=== PATIENT | female | born 1990 | race Caucasian/White ===

== ENCOUNTER → 2020-03-31 15:35 | Outpatient (CLI) | payer BC, SELFPAY ==
--- NOTE | ~2020-03-31 | US_ITS ---
EXAMINATION: US OB transvaginal EXAM DATE: 03/31/2020 16:18 INDICATION: Spotting in 1 week ago. 1st trimester. TECHNIQUE: Pelvic obstetrical transvaginal sonogram was performed by a technologist. There are mult iple grayscale and Doppler images available for interpretation. There are no earlier studies of this gestation for comparison. FINDINGS: There is intrauterine gestation sac, with what appears to be a lobulation of endometrial ti ssue protruding into the gestation sac, distorting its contour, probably displacing portion of it. Th is region measures about 1 cm. A yolk sac is identified measuring 3-4 mm, along with a contiguous tin y pole suspected at 2 mm which would correspond to estimated gestational age 5 weeks 5 days. Tiny cardiac flutter suspected but could not confirm heart rate on M-mode at this early date. No subc horionic hemorrhage suspected. The ovaries are morphologically normal. IMPRESSION: 1. Early intrauterine gestation sac with tiny pole suspected but could not confirm heart rate o n M-mode. 2. Lobulation of endometrium bulging into and distorting the contour of the gestation sac. 3. Consider 2 week follow-up pelvic sonogram. Reviewed, dictated and finalized at location B. IMPRESSION: 1. Early intrauterine gestation sac with tiny pole suspected but could no t confirm heart rate on M-mode. 2. Lobulation of endometrium bulging into and distorting the contour of the ges tation sac. 3. Consider 2 week follow-up pelvic sonogram.
== END ==
PROVIDERS: Visit Provider Obstetrics & Gynecology
DX: O26.851 Spotting complicating pregnancy, first trimester (principal)
CPT/HCPCS: 76817

== ENCOUNTER 2020-03-31 16:30 | Outpatient (RCR) | payer BC, SELFPAY | END 2020-06-27 23:59 | disposition home or self-care (01) | LOC: ANHLAB 16:30 | PROVIDERS: Visit Provider Obstetrics & Gynecology | DX: O26.859 Spotting complicating pregnancy, unspecified trimester (principal); Z3A.00 Weeks of gestation of pregnancy not specified | CPT/HCPCS: 36415; 84702; 86850; 86900; 86901 ==

== ENCOUNTER → 2020-04-16 08:15 | Outpatient (CLI) | payer BC, SELFPAY ==
--- NOTE | ~2020-04-16 | US_ITS ---
EXAMINATION: US OB transvaginal DATE: 04/16/2020 08:49 INDICATION: Evaluate viability TECHNIQUE: Real-time transvaginal obstetric ultrasound. FINDINGS: Comparison to 03/31/2020 The uterus measures 10.9 x 6.2 x 8 cm. There is an intrauterine gestational sac, with pole iden tified. Subchorionic hemorrhage measuring 3 x 1.1 x 1.0 cm. The crown rump length measures 1.67 cm, w hich correlates with a estimated gestational age of 8 weeks 0 days. heart tones are identifie d measuring 158. IMPRESSION: 1. SL IUP with an EGA of 8 weeks, 0 days (EDC by current ultrasound of 11/26/2020). 2: Subchorionic hemorrhage. Reviewed, dictated and finalized at location B. IMPRESSION: 1. SL IUP with an EGA of 8 weeks, 0 days (EDC by current ultrasound of 11/27/19). 2: Subchorionic hemorrhage.
== END ==
PROVIDERS: Visit Provider Obstetrics & Gynecology
DX: O36.80X0 Pregnancy with inconclusive fetal viability, not applicable or unspecified (principal); Z3A.08 8 weeks gestation of pregnancy; O36.8911 Maternal care for other specified fetal problems, first trimester, fetus 1
CPT/HCPCS: 76817

== ENCOUNTER 2020-05-12 14:42 | Outpatient (CLI) | payer BC, SELFPAY ==
[2020-05-12 15:31] LABS: Basophils Percent Auto 0.4 % (0.2-1.2); Eosinophils Absolute Auto 0.1 K/mm3 (0-0.3); Eosinophils Percent Auto 0.5 % (0-4.4); Hematocrit 38.4 % (37.0-47.0); Hemoglobin 13.4 g/dL (12.0-15.0); Immature Granulocyte Absolute 0.04 K/mm3 (0.00-0.031); Immature Granulocyte Percent A 0.4 % (0-0.5); Lymphocytes Absolute Auto 2.33 K/mm3 (0.9-3.2); Lymphocytes Percent Auto 21.7 % (18.3-44.2); Mean Corpuscular HGB Conc 34.9 g/dl (32-36); Mean Corpuscular Hemoglobin 32.2 pg (26-34); Mean Corpuscular Volume 92.3 fl (80-100); Mean Platelet Volume 9.6 fl (7.4-10.4); Monocytes Absolute Auto 0.8 K/mm3 (0.1-0.6); Neutrophils Absolute Auto 7.5 K/mm3 (1.3-6.7); Platelet Count Result 251 k/mm3 (150-375); Red Blood Count 4.16 M/mm3 (4.2-5.4); Red Cell Distribution Width 11.8 % (11.5-14.5); White Blood Count 10.7 K/mm3 (4.5-10.0)
[2020-05-12 16:52] LABS: Hemoglobin A1C 4.6 % (<5.7)
[2020-05-12 17:28] LABS: Vitamin D 25 Hydroxy 45.7 ng/mL
[2020-05-12 19:02] LABS: HIV 1/2 Ab P24 Ag Result Negative (Negative); Hepatitis B Surface Antigen Negative (Negative); Rubella IgG Antibody 25.3 IU/ML
[2020-05-13 09:50] LABS: Rapid Plasma Reagin Non-Reactive (NonReactive)
== END 2020-05-12 14:43 | disposition home or self-care (01) ==
PROVIDERS: Visit Provider Obstetrics & Gynecology
DX: Z36.9 Encounter for antenatal screening, unspecified (principal)
CPT/HCPCS: 36415; 82306; 83036; 85025; 86592; 86703; 86762; 86850; 86900; 86901; 87340; G0432

== ENCOUNTER → 2020-05-13 08:16 | Outpatient (CLI) | payer BC, SELFPAY ==
--- NOTE | ~2020-05-13 | US_ITS ---
EXAMINATION: US OB <= 14 weeks fetus DATE: 05/13/2020 09:32 INDICATION: Subchorionic hematoma. Follow-up. First trimester. TECHNIQUE: Real-time transabdominal pelvic ultrasound was performed. COMPARISON: Ultrasound 04/16/2020, 03/31/2020 FINDINGS: The uterus measures 12.0 x 9.1 x 11.1 cm. There is an intrauterine gestational sac. A yolk sac is christophe ntified. The crown rump length measures 5.3 cm, which correlates with an estimated gestational age of 12 weeks and 0 day(s) (+/-) 1 week(s) and 1 day(s). heart motion is identified measurin g 147 beats per minute (bpm) by M-mode Doppler. There is a 3.4 x 0.7 x 3.2 cm subchorionic hematoma. There is an 11 mm cyst in the endometrial complex. The ovaries are not visualized. There is no free f luid in the pelvis. IMPRESSION: 1. Single living intrauterine gestation with estimated date of delivery of 11/26/20 based on the ultra sound from 03/31/2020. 2. Small subchorionic hematoma. Reviewed, dictated and finalized at location A. SPINNER SOUSAPHONES IMPRESSION: 1. Single living intrauterine gestation with estimated date of delivery of 11/26 based on the ultrasound from 03/31/2020. 2. Small subchorionic hematoma.
== END ==
PROVIDERS: Visit Provider Obstetrics & Gynecology
DX: O46.91 Antepartum hemorrhage, unspecified, first trimester (principal); Z3A.12 12 weeks gestation of pregnancy
CPT/HCPCS: 76801

== ENCOUNTER 2020-06-11 07:31 | Outpatient (CLI) | payer BC, SELFPAY ==
--- NOTE | ~2020-06-11 | US_ITS ---
US OB limited 06/11/2020 08:31 Indication: Subchorionic hemorrhage Procedure: High-resolution Limited early obstetrical ultrasound Comparison: 05/03/2020 Findings: There is a single living intrauterine in vertex presentation with heart rat e 150 BPM. Amniotic fluid is subjectively normal. Persistent small subchorionic hemorrhage measuring 1.2 x 0.7 x 0.7 cm compared with 1.1 x 0.8 x 0.7 cm on prior study. Placenta is anterior. Impression: 1: Single living intrauterine in vertex presentation. 2: Stable small subchorionic hemorrhage. Reviewed, dictated and finalized at location A. IER OFFICE Impression: 1: Single living intrauterine in vertex presentation. 2: Stable small subchorionic hemorrhage.
== END 2020-06-11 07:32 | disposition home or self-care (01) ==
PROVIDERS: Visit Provider Obstetrics & Gynecology
DX: O36.8912 Maternal care for other specified fetal problems, first trimester, fetus 2 (principal); Z3A.16 16 weeks gestation of pregnancy
CPT/HCPCS: 76815

== ENCOUNTER → 2020-07-10 09:47 | Outpatient (CLI) | payer BC, SELFPAY ==
--- NOTE | ~2020-07-10 | US_ITS ---
EXAMINATION: US OB >= 14 weeks Fetus DATE: 07/10/2020 10:35 INDICATION: survey TECHNIQUE: Multiple obstetric sonographic images performed. FINDINGS: Comparison to multiple prior studies sequentially, with oldest reviewed study dated 2019. There is a single living fetus in vertex presentation. The placenta is posterior/fundal without plac enta previa. Amniotic fluid volume is normal. cardiac activity and movement is noted with a heart rate of 145 beats per minute. The following anatomy was identified as normal: 4 chamber heart 3 vessel cord cord insertion kidneys urinary bladder stomach spine diaphragm ventricles cisterna magna cerebellum There is possible developmental deformity of the right lower leg/foot. Recommend attention to this on subsequent examination. The following biometric data were obtained: BPD: 47mm corresponds to gestational age 20 weeks 2 days. Head circumference: 180 mm corresponds to gestational age 20 weeks 3 days. Abdominal circumference: 153 mm corresponds to gestational age 20 weeks 4 days. Femur length: 35 mm corresponds to gestational age 21 weeks 1 days. Head circumference to abdominal circumference ratio: 1.17 (normal range for expected gestational age is 1.07-1.25). Estimated weight: 373 grams +/- 56 grams using Hadlock method. IMPRESSION: 1: Single living intrauterine with an estimated gestational age of 20weeks 1days by initial ultrasound measurements, with an EDC of 11/26/2020 in vertex presentation. 2. Possible developmental deformity of the right lower leg/foot. Recommend attention to this on subs equent examination. The remainder of the survey is unremarkable. 3: Stable small hypoechoic structure along the margin of the placenta, likely chronic subchorionic h ematoma. Reviewed, dictated and finalized at location A. CUTTING MACHINE OPERATOR IMPRESSION: 1: Single living intrauterine with an estimated gestational age of 20 weeks 1days by initial ultrasound measurements, with an EDC of 11/26/2020 in ve rtex presentation. 2. Possible developmental deformity of the right lower leg/foot. Recommend att ention to this on subsequent examination. The remainder of the survey is unremarkable. 3: Stable small hypoechoic structure along the margin of the placenta, likely chronic subchorionic hematoma.
== END ==
PROVIDERS: Visit Provider Obstetrics & Gynecology
DX: Z34.02 Encounter for supervision of normal first pregnancy, second trimester (principal); Z3A.20 20 weeks gestation of pregnancy
CPT/HCPCS: 76805

== ENCOUNTER 2020-09-04 08:13 | Outpatient (CLI) | payer BC, SELFPAY ==
[2020-09-04 09:57] LABS: Hematocrit 33.8 % (37.0-47.0); Hemoglobin 11.4 g/dL (12.0-15.0)
[2020-09-04 10:09] LABS: Glucose 1 Hour PP 50gm Dose 92 mg/dL
[2020-09-04 10:46] LABS: Vitamin D 25 Hydroxy 43.9 ng/mL
[2020-09-04 10:48] LABS: HIV 1/2 Ab P24 Ag Result Negative (Negative)
== END 2020-09-04 08:14 | disposition home or self-care (01) ==
PROVIDERS: Visit Provider Obstetrics & Gynecology
DX: Z34.02 Encounter for supervision of normal first pregnancy, second trimester (principal); Z3A.00 Weeks of gestation of pregnancy not specified
CPT/HCPCS: 36415; 82306; 82947; 85014; 85018; 86703; G0432

== ENCOUNTER 2020-11-18 00:33 | Inpatient (IN) | payer BC, SELFPAY ==
[2020-11-18] VITALS (29 sets, daily range): BP systolic 95–154; BP diastolic 56–99; PULSE 55–79; RESP 16–18; TEMP 36–37.1; O2SAT 96–100; BMI 29.1
--- NOTE | 2020-11-18 00:33 | LDADM ---
This patient, Jennifer Mattson, was admitted to Labor/Delivery/Recovery 109 on 11/18/20 at 00:33. Plans for labor, pain management and were discussed with patient. Patient/family oriented to hospital policies and general routines including ID bracelet, bed and alarms, visiting hours, pain management, procedures, bathroom and other care routines, personal items, smoking policy, room service/diet and guest tray routines, security routines, and visiting hours. Patient/Family are encouraged to report perceived risks to care and to ask questions if they do not understand what they are told or what they should do. See OBIX for further documentation.
[2020-11-18] MEDS: LACTATED RINGERS 1,000 ML 125 ML IV CONT ×3 (01:03→09:22)
[2020-11-18] MEDS: AMPICILLIN 2 GM/NS 100 ML 2 GM/100 ML BAG IVPB (01:04)
[2020-11-18 01:10] LABS: Basophils Percent Auto 0.4 % (0.2-1.2); Eosinophils Absolute Auto 0.1 K/mm3 (0-0.3); Eosinophils Percent Auto 0.5 % (0-4.4); Hematocrit 35.8 % (37.0-47.0); Hemoglobin 12.2 g/dL (12.0-15.0); Immature Granulocyte Absolute 0.07 K/mm3 (0.00-0.031); Immature Granulocyte Percent A 0.7 % (0-0.5); Lymphocytes Absolute Auto 2.23 K/mm3 (0.9-3.2); Mean Corpuscular HGB Conc 34.1 g/dl (32-36); Mean Corpuscular Hemoglobin 32.3 pg (26-34); Mean Corpuscular Volume 94.7 fl (80-100); Mean Platelet Volume 11.4 fl (7.4-10.4); Monocytes Absolute Auto 0.8 K/mm3 (0.1-0.6); Monocytes Percent Auto 7.7 % (2.6-8.5); Neutrophils Percent Auto 68.7 % (45.5-73.1); Platelet Count Result 190 k/mm3 (150-375); Red Blood Count 3.78 M/mm3 (4.2-5.4); Red Cell Distribution Width 12.7 % (11.5-14.5); White Blood Count 10.2 K/mm3 (4.5-10.0)
[2020-11-18] MEDS: OXYTOCIN 30 UNITS/NS 500 ML 30 UNITS/500 ML BAG IV CONT (01:29)
--- NOTE | 2020-11-18 02:37 | P.PNAN_ITS ---
Anes - Eval Pre Procedure Procedure: Labor epidural Date/Time: 11/18/20 02:37 Surgeon: Marita Preop Diagnosis: abd pain with contractions Pre Op Diagnosis: IOL Patient Data Age: 30 Gender: F Height: 5 ft 5 in Weight: 79.5 kg Last Vital Signs Temp 97.5 F L 11/18/20 00:51 Pulse 64 11/18/20 02:30 Resp 18 11/18/20 00:51 BP 117/77 11/18/20 02:30 Allergies Allergy/AdvReac Type Severity Reaction Status Date / Time Sulfa (Sulfonamide Allergy Unknown Verified 10/30/20 12:34 Antibiotics) Home Medications Medication Instructions Recorded Confirmed Type prenat.vits,quentin,yst-wscv-idhht 1 tablet PO DAILY 10/30/20 10/30/20 History [ #2] Laboratory Tests 11/18/20 11/18/20 00:57 00:57 WBC 10.2 K/mm3 H K/mm3 (4.5-10.0) RBC 3.78 M/mm3 L M/mm3 (4.2-5.4) Hgb 12.2 g/dL g/dL (12.0-15.0) Hct 35.8 % L % (37.0-47.0) MCV 94.7 fl fl (80-100) MCH 32.3 pg pg (26-34) MCHC 34.1 g/dl g/dl (32-36) RDW 12.7 % % (11.5-14.5) Plt Count 190 k/mm3 k/mm3 (150-375) MPV 11.4 fl H fl (7.4-10.4) Immature Gran % (Auto) 0.7 % H % (0-0.5) Neut % (Auto) 68.7 % % (45.5-73.1) Lymph % (Auto) 22.0 % % (18.3-44.2) Desha % (Auto) 7.7 % % (2.6-8.5) Eos % (Auto) 0.5 % % (0-4.4) Baso % (Auto) 0.4 % % (0.2-1.2) Lymph # (Auto) 2.23 K/mm3 K/mm3 (0.9-3.2) Desha # (Auto) 0.8 K/mm3 H K/mm3 (0.1-0.6) Eos # (Auto) 0.1 K/mm3 K/mm3 (0-0.3) Baso # (Auto) 0.0 K/mm3 K/mm3 (0.0-0.1) Abs Immat Gran (auto) 0.07 K/mm3 H K/mm3 (0.00-0.031) Absolute Neuts (auto) 7.0 K/mm3 H K/mm3 (1.3-6.7) Absolute Nucleated RBC 0.0 K/mm3 K/mm3 (0.0-0.012) Nucleated RBC % 0.0 % % (0.0-0.2) RPR Pending Patient hx anesthesia problems: none Family hx anesthesia problems: none PMFSH Past Medical History Medical History Overweight (BMI 25.0-29.9) and not yet delivered Surgical History Surgical History History of tonsillectomy Family History Family History Mother A-fib Scoliosis Sibling Scoliosis Social History Social History Smoking status: Never smoker Substance use: never Spiritual care concerns: No Exam Day of Procedure 11/18/20 02:37 Patient weight: overweight Airway: Mallampati scale class II Neurological: alert and oriented
[2020-11-18] MEDS: AMPICILLIN 1 GM/NS 50 ML 1 GM/50 ML BAG IVPB ×2 (04:50→09:22)
--- NOTE | 2020-11-18 07:37 | P.HP_ITS ---
Obstetrics - Admit Note Admission Note: record reviewed. No pertinent additions to the history and/or any subsequent changes in the physical findings that are not consistent with the expected course of the were found. Additions to the history and/or subsequent changes in the physical findings follow. Here for MIL per Dr. Kirkland at 39 1/7 wks with marginal vs velementous insertion of cord. Cervix 480/-2 AROM with clear fluid. I will be covering as Dr. Kirkland is leaving [facility]. Known club foot. FHTs reactive
[2020-11-18 10:24] LABS: Rapid Plasma Reagin Non-Reactive (NonReactive)
--- NOTE | 2020-11-18 11:34 | P.PCNOB_ITS ---
OB - Delivery Note Procedure Delivery date: 11/18/20 Procedure: events: Labor Induction (velementous cord insertion) Intrapartal events: None Induction method: AROM and per pitocin protocol Delivery monitor: external FHT and external uterine Route of delivery: Laceration Description: Perineal - 2nd Degree Delivery repair: vicryl (3-0) Specimen: Yes (placenta) Quantitative Blood Loss (ml): 350 Anesthesia type: Local Disposition: floor Narrative: cord and about 1/4 placenta delivered spontaneous; remainder of placenta delivered manually; uterus explored and smooth without placenta or membrane remnants Roxana Baby Date of : 11/18/20 Weeks of gestation at delivery: 39 Infant gender: Female Weight (pounds): 6 Weight (ounces): 6 presentation: vertex position: Left Occiput Anterior Placenta delivery description: Manual Removal cord vessel description: 3 Vessels and Nuchal Cord score one minute: 8 score five minutes: 9
--- NOTE | 2020-11-18 11:36 | P.DS_ITS ---
DS: Admitting Diagnosis Admitting Diagnosis Admitting Diagnosis: IUP 39 wks; Velementous insertion of cord; Clubbed foot DS: Discharge Diagnosis Discharge Diagnosis (1) (normal spontaneous vaginal delivery): Code(s): O80 - Encounter for full-term uncomplicated delivery Status: Acute OB - DS: Summary OB Procedures : NST and Ultrasound OB Procedures Intrapartum: Spontaneous Vag Delivery OB Procedures: : None Peripartum Data Delivery Method: Natural Vaginal Laceration Description: Perineal - 2nd Degree complications: retained placenta (manual removal of majority of placenta) Status at Discharge Functional status at discharge: independent ambulation Overall status at discharge: patient is progressing back to baseline Time Spent with Patient Time attestation: Total time spent providing and/or coordinating discharge services: DS: Data Data Completed and Pending Labs on day of discharge: Labs from last 24 hours 11/18/20 11/18/20 11/18/20 00:57 00:57 00:57 WBC 10.2 H RBC 3.78 L Hgb 12.2 Hct 35.8 L MCV 94.7 MCH 32.3 MCHC 34.1 RDW 12.7 Plt Count 190 MPV 11.4 H Immature Gran % (Auto) 0.7 H Neut % (Auto) 68.7 Lymph % (Auto) 22.0 Nobles % (Auto) 7.7 Eos % (Auto) 0.5 Baso % (Auto) 0.4 Lymph # (Auto) 2.23 Nobles # (Auto) 0.8 H Eos # (Auto) 0.1 Baso # (Auto) 0.0 Abs Immat Gran (auto) 0.07 H Absolute Neuts (auto) 7.0 H Absolute Nucleated RBC 0.0 Nucleated RBC % 0.0 RPR Non-reactive Blood Type A Positive Antibody Screen Negative Discharge Plan Discharge Attending physician on discharge: Catalina Guido Discharging Clinician: Catalina Guido Anticipated Discharge Date/Time: 11/20/20 11:38 Patient Disposition: Home, Self-Care Activity: may shower and pelvic rest Diet: regular Patient Instructions: Antibiotic Form Stand Alone Forms: General Discharge Information Follow-up/Referrals: Jareth Kirkland MD [Physician] - 6 Weeks Discharge Medications: New norethindrone (contraceptive) 0.35 mg tablet 0.35 mg PO DAILY Qty: 84 RF: 3 Continued #2 Tablet 1 tablet PO DAILY RF: 0 Date of admission: 11/18/20 00:33 Primary Care Provider: PHYSICIAN,ELEVATOR TROUBLESHOOTER Admitting Provider: Jareth Kirkland Attending physician on admission: Jareth Kirkland Condition: Stable
[2020-11-18] MEDS: OXYTOCIN 30 UNITS/NS 500 ML 30 UNITS/500 ML BAG 125 UNITS IV CONT (11:46)
[2020-11-18] MEDS: IBUPROFEN 600 MG TABLET PO (12:51)
[2020-11-18] MEDS: BENZOCAINE 20% AER SPR (*SP) 56 GM CAN 1 SPRAY TOPICAL (12:52)
[2020-11-18] MEDS: WITCH HAZEL 40 PADS 1 PAD TOPICAL (12:52)
--- NOTE | 2020-11-18 14:14 | OBPPTRN ---
Patient transferred to post room # 281 via wheelchair Support person present. Oriented to unit, room, information board, rooming in, admission packet and security measures. Patient verbalizes understanding.PT received all instructions and education via one to one discussion , demonstration, mom baby care guide. PT and spouse both recipients of education and no barriers to learning identified.
--- NOTE | 2020-11-18 14:45 | PC.NURSE ---
RN requested assist with feeding. . Reviewed feeding cues, frequencies, duration of feedings, feeding elimination flow sheet, and signs of adequate intake. Demonstrated stimulation techniques to wake infant for feeding. Assisted with infant to breast. Reviewed positioning/alignment in cross cradle, holding breast in ?U? hold and guided asymmetrical latch on. able to latch correctly within a few attempts. Infant nursed eagerly, with steady draws and occasional swallowing followed by pausing. Reviewed signs of a correct latch, effective nursing and suck swallow ratio. Infant would slip to shallow latch, mother reports tenderness. Demonstrated how to adjust latch more deeply while feeding. Mother reports she can feel change in latch and has more tugging than tenderness. Nipple care reviewed of lanolin after feedings, warm compresses and needed. Suggested mother stimulate while feeding to increase stimulate, increase intake and to assist with maintaining deep latch. Instructed mother to call out for RN assistance if she is unable to latch infant for feeding or she has discomfort with nursing. Instructed feeding should be initiated three hours from start of last feeding or if feeding cues are noted before. Mother voiced understanding of information shared.
[2020-11-18] MEDS: ACETAMINOPHEN 325 MG TABLET 650 MG PO (16:34)
[2020-11-18] MEDS: DOCUSATE SODIUM 100 MG CAPSULE PO (16:35)
[2020-11-19 04:50] VITALS: BP 114/67; PULSE 64; RESP 16; TEMP 36.4; O2SAT 100
[2020-11-19] MEDS: IBUPROFEN 600 MG TABLET PO (04:53)
[2020-11-19 05:46] LABS: Hematocrit 32.1 % (37.0-47.0); Hemoglobin 10.8 g/dL (12.0-15.0)
--- NOTE | 2020-11-19 07:50 | PC.NURSE ---
Mother called out for assist with feeding. Mother reports nipple discomfort with feeding more to right than left. Mother has infant latched shallow in cradle positioning. Suggested mother break latch. Assisted with to breast. Reviewed positioning/alignment in cross cradle, holding breast in ?U? hold and guided asymmetrical latch on. able to latch correctly. Infant nursed eagerly, with steady draws and frequent swallowing noted. Reviewed signs of a correct latch, effective nursing and suck swallow ratio. would slip to shallow latch, mother reports tenderness. Demonstrated how to adjust latch more deeply while feeding. Mother reports she can feel change in latch and has no tenderness. Nipple care reviewed of lanolin after feedings, warm compresses and gel pads as needed. Suggested mother stimulate while feeding to increase stimulate, increase intake and to assist with maintaining deep latch. Instructed mother to call out for RN assistance if she is unable to latch infant for feeding or she has discomfort with nursing. Instructed feeding should be initiated three hours from start of last feeding or if feeding cues are noted before. Mother voiced understanding of information shared.
[2020-11-19 09:15] VITALS: BP 112/67; PULSE 72; RESP 16; TEMP 37.1; O2SAT 99
--- NOTE | 2020-11-19 12:43 | PM.OBPNVD ---
OB - PN: Subj Subjective Date/time seen: 11/19/20 12:43 Patient comments: no complaints and pain well controlled baby status: doing well OB - PN: Obj Data Labs CBC & Chem 7: 11/19/20 04:57 Labs: Laboratory Results - last 24 hr 11/19/20 04:57 Hgb 10.8 L Hct 32.1 L OB - PN A/P Plan day: 1 Plan: routine care Time Spent With Patient Time: Total time spent is greater than 50% in coordination of care (as documented) at patient's floor/unit and/or counseling patient: Exam : Bimanual exam- vagina & uterus: other (Uterus firm, nt @U)
--- NOTE | 2020-11-19 12:55 | PC.NURSE ---
Mother called out for assist with feeding wanting latch checked. Mother reports slight nipple discomfort less than previous feeding. Infant was latched correctly with bottom lip rolled in. Demonstrated how to roll lip out while feeding. nursed eagerly, with steady draws and frequent swallowing noted. Reviewed signs of a correct latch, effective nursing and suck swallow ratio. Nipple care reviewed of lanolin after feedings, warm compresses and needed. Suggested mother stimulate while feeding to increase stimulate, increase intake and to assist with maintaining deep latch. Instructed mother to call out for RN assistance if she is unable to latch infant for feeding or she has discomfort with nursing. Instructed feeding should be initiated three hours from start of last feeding or if feeding cues are noted before. Mother voiced understanding of information shared. Mother states she feels confident to continue effective at home. Reviewed transition to breast milk, signs of adequate intake, and engorgement/relief. Instructed to call ICP if intake/output less than required. Reviewed regular medications mother is taking. Information provided per Nichole. Reviewed community resources on the [facility] website and in the Mom/Baby guide. Information on outpatient services provided. Mother has no further questions at this time.
[2020-11-19 19:25] VITALS: BP 132/88; PULSE 66; RESP 16; TEMP 36.7; O2SAT 100
--- NOTE | 2020-11-19 19:25 | PC.NURSE ---
Patient viewed the discharge video Mother & Baby Care, The First Two Weeks online. Patient was given the opportunity and encouraged to ask questions. Patient verbalized understanding of information shared and has been given the mother/baby guide for home reference.
[2020-11-20 09:00] VITALS: BP 135/77; PULSE 78; RESP 18; TEMP 36.7; O2SAT 100
--- NOTE | 2020-11-20 11:36 | PM.OBPNVD ---
OB - PN: Subj Subjective Date/time seen: 11/20/20 11:36 Patient comments: no complaints and pain well controlled baby status: doing well and nursing well OB - PN: Obj Data Labs CBC & Chem 7: 11/19/20 04:57 OB - PN A/P Plan day: 2 Plan: routine care, discharge home, follow up 6 weeks and other (plans oc's for bc) Time Spent With Patient Time: Total time spent is greater than 50% in coordination of care (as documented) at patient's floor/unit and/or counseling patient: Exam : Bimanual exam- vagina & uterus: other (Uterus firm, nt @U)
[2020-11-23 07:54] VITALS: BP 134/85; PULSE 73; RESP 16; TEMP 37.1; O2SAT 97
== END 2020-11-20 12:50 | disposition home or self-care (01) | DRG 807 ==
LOC: ANHLDR 11-24 10:04 → ANHOB2 11-24 10:04
PROVIDERS: Admitting Provider Obstetrics & Gynecology; Visit Provider Obstetrics & Gynecology Gynecology
DX: O43.123 Velamentous insertion of umbilical cord, third trimester (principal); Z37.0 Single live birth; O73.0 Retained placenta without hemorrhage; O70.1 Second degree perineal laceration during delivery; O99.824 Streptococcus B carrier state complicating childbirth; O69.81X0 Labor and delivery complicated by cord around neck, without compression, not applicable or unspecified; Z3A.39 39 weeks gestation of pregnancy
CPT/HCPCS: 36415; 85014; 85018; 85025; 86592; 86850; 86900; 86901; 88307; A9270; J0290; J2590; J7120

== ENCOUNTER 2022-06-24 07:35 | Outpatient (CLI) | payer OTHER, SELFPAY ==
[2022-06-24 08:08] LABS: Basophils Percent Auto 0.4 % (0.2-1.2); Eosinophils Absolute Auto 0.2 K/mm3 (0-0.3); Eosinophils Percent Auto 2.3 % (0-4.4); Hematocrit 36.2 % (37.0-47.0); Immature Granulocyte Absolute 0.03 K/mm3 (0.00-0.031); Immature Granulocyte Percent A 0.4 % (0-0.5); Lymphocytes Absolute Auto 1.76 K/mm3 (0.9-3.2); Mean Corpuscular HGB Conc 33.1 g/dl (32-36); Mean Corpuscular Hemoglobin 31.3 pg (26-34); Mean Corpuscular Volume 94.5 fl (80-100); Mean Platelet Volume 9.8 fl (7.4-10.4); Monocytes Absolute Auto 0.4 K/mm3 (0.1-0.6); Monocytes Percent Auto 6.1 % (2.6-8.5); Neutrophils Absolute Auto 4.6 K/mm3 (1.3-6.7); Neutrophils Percent Auto 65.8 % (45.5-73.1); Platelet Count Result 214 k/mm3 (150-375); Red Blood Count 3.83 M/mm3 (4.2-5.4); Red Cell Distribution Width 12.4 % (11.5-14.5)
[2022-06-24 08:56] LABS: HIV 1/2 Ab P24 Ag Result Negative (Negative)
[2022-06-24 09:06] LABS: Hemoglobin A1C 4.7 % (<5.7)
[2022-06-24 09:17] LABS: Hepatitis B Surface Antigen Negative (Negative); Rubella IgG Antibody 19.4 IU/ML; Vitamin D 25 Hydroxy 37.1 ng/mL
[2022-06-24 09:33] LABS: Hepatitis C Virus Antibody Negative (Negative)
[2022-06-26 08:06] LABS: Rapid Plasma Reagin Non-Reactive (NonReactive)
== END 2022-06-24 07:36 | disposition home or self-care (01) ==
PROVIDERS: Visit Provider Obstetrics & Gynecology Gynecology
DX: Z36.9 Encounter for antenatal screening, unspecified (principal); Z3A.00 Weeks of gestation of pregnancy not specified
CPT/HCPCS: 36415; 82306; 82728; 83036; 85025; 86592; 86703; 86762; 86803; 86850; 86900; 86901; 87340; G0432

== ENCOUNTER 2022-09-30 07:15 | Outpatient (CLI) | payer BC, SELFPAY ==
[2022-09-30 09:06] LABS: Hematocrit 35.9 % (37.0-47.0); Hemoglobin 11.9 g/dL (12.0-15.0)
[2022-09-30 09:20] LABS: Glucose 1 Hour PP 50gm Dose 75 mg/dL
[2022-09-30 09:59] LABS: HIV 1/2 Ab P24 Ag Result Negative (Negative)
[2022-09-30 10:00] LABS: Vitamin D 25 Hydroxy 58.3 ng/mL
== END 2022-09-30 07:16 | disposition home or self-care (01) ==
PROVIDERS: Visit Provider Advanced Practice Midwife
DX: Z36.9 Encounter for antenatal screening, unspecified (principal)
CPT/HCPCS: 36415; 82306; 82947; 85014; 85018; 86703; G0432

== ENCOUNTER 2022-12-19 05:22 | Inpatient (IN) | payer BC, SELFPAY ==
[2022-12-19] VITALS (20 sets, daily range): BP systolic 67–132; BP diastolic 28–87; PULSE 71–91; RESP 12–20; TEMP 36.3–37.1; O2SAT 97–100
--- NOTE | 2022-12-19 05:22 | LDADM ---
This patient, Jennifer Mattson, was admitted to Labor/Delivery/Recovery 105 on 12/19/22 at 05:22. Plans for labor, pain management and were discussed with patient. Patient/family oriented to hospital policies and general routines including ID bracelet, bed and alarms, visiting hours, pain management, procedures, bathroom and other care routines, personal items, smoking policy, room service/diet and guest tray routines, security routines, and visiting hours. Patient/Family are encouraged to report perceived risks to care and to ask questions if they do not understand what they are told or what they should do. See OBIX for further documentation.
[2022-12-19 06:18] LABS: Basophils Absolute Auto 0.1 K/mm3 (0.0-0.1); Basophils Percent Auto 0.4 % (0.2-1.2); Eosinophils Percent Auto 0.2 % (0-4.4); Hematocrit 36.3 % (37.0-47.0); Immature Granulocyte Absolute 0.11 K/mm3 (0.00-0.031); Immature Granulocyte Percent A 0.9 % (0-0.5); Lymphocytes Absolute Auto 1.19 K/mm3 (0.9-3.2); Lymphocytes Percent Auto 10.2 % (18.3-44.2); Mean Corpuscular HGB Conc 33.1 g/dl (32-36); Mean Corpuscular Hemoglobin 30.9 pg (26-34); Mean Corpuscular Volume 93.6 fl (80-100); Mean Platelet Volume 10.9 fl (7.4-10.4); Monocytes Absolute Auto 0.6 K/mm3 (0.1-0.6); Monocytes Percent Auto 5.2 % (2.6-8.5); Neutrophils Absolute Auto 9.7 K/mm3 (1.3-6.7); Neutrophils Percent Auto 83.1 % (45.5-73.1); Platelet Count Result 165 k/mm3 (150-375); Red Blood Count 3.88 M/mm3 (4.2-5.4); Red Cell Distribution Width 13.6 % (11.5-14.5); White Blood Count 11.7 K/mm3 (4.5-10.0)
--- NOTE | 2022-12-19 08:08 | WPDOBADMIT ---
Obstetrics - Admit Note Admission Note: record reviewed. No pertinent additions to the history and/or any subsequent changes in the physical findings that are not consistent with the expected course of the were found. Additions to the history and/or subsequent changes in the physical findings follow. None. Pt arrived in spontaneous labor
--- NOTE | 2022-12-19 08:09 | PM.OBPNLAB ---
Pain Control Date/time seen: 12/19/22 08:05 Pain control: tolerating well Pelvic Exam Dilation (cm): 6 Effacement (%): 80 station: -2 Amniotic membrane status: Intact Comments: head well applied to cervix. Contractions Monitor mode: External Contraction frequency: 3 Contraction pattern: Regular Contraction intensity: Moderate Status status: Category l Assessment and Plan Assessment: active labor Comments: CNM to bedside. Discussed plan of care an option for amniotomy. Discussed risks, benefits, and expectations of breaking water. Patient is agreeable. Amniotomy performed and there was a small return of clear amniotic fluid. Patient tolerated procedure well. Anticipate vaginal . Dr. Guido updated.
[2022-12-19] MEDS: LACTATED RINGERS 1,000 ML 125 ML IV CONT (09:41)
[2022-12-19] MEDS: OXYTOCIN 30 UNITS/NS 500 ML 30 UNITS/500 ML BAG 999 UNITS IV CONT (09:42)
--- NOTE | 2022-12-19 10:53 | PC.NURSE ---
1010 - Went to make introductions and diverted the plan related to patient pushing.
[2022-12-19] MEDS: fentaNYL CITRATE INJ (*CRX) 100 MCG/2 ML VIAL 50 MCG IV PUSH ×2 (11:19→11:22)
[2022-12-19] MEDS: fentaNYL CITRATE INJ (*CRX) 100 MCG/2 ML VIAL IV PUSH (11:40)
--- NOTE | 2022-12-19 11:44 | PM.IMHP ---
H&P: [facility] History of Present Illness Date/Time: 12/19/22 11:44 Chief Complaint: Retained placenta Narrative: s/p unmedicated . Vaginal laceration. Retained placenta. Review of Systems Review of Systems: 32y.o . Full term unmedicated vaginal . Vaginal laceration, left labial laceration. Retained placenta All systems reviewed & are unremarkable except as noted in HPI and below Constitutional: Constitutional: Reports as per [facility] Past Medical History Medical History (Updated 12/19/22 @ 11:48 by Milagro Chavez CNM) Overweight (BMI 25.0-29.9) and not yet delivered Surgical History Surgical History History of tonsillectomy Family History Family History Mother A-fib Scoliosis Sibling Scoliosis Social History Social History Smoking status: Never smoker Second hand tobacco smoke exposure: No Substance use: never Lack of Transportation: No Lack of Food: Never True Current Housing: I Have Housing Concerned About Future Housing: No Difficulty Paying Gas/Electric Bills: No Difficulty Paying for Meds: No Currently Unemployed: YES Education: Master's Degree or Higher Difficulty w/ Childcare or Family Care: No Spiritual care concerns: No Meds Home Medications and Allergies Home Medications Medication Instructions Recorded Confirmed Type prenat.vits,quentin,jom-tcdz-qomas 1 tablet PO DAILY 10/30/20 12/19/22 History aspirin 81 mg chewable tablet 81 mg PO DAILY 11/24/22 12/19/22 History Allergies Allergy/AdvReac Type Severity Reaction Status Date / Time Sulfa (Sulfonamide Allergy Unknown Verified 11/24/22 12:33 Antibiotics) Vital Signs Vital Signs - 24 hr 12/19/22 05:45 12/19/22 06:00 12/19/22 06:15 Pulse Rate 86 84 85 Blood Pressure 113/84 108/87 116/82 Oxygen Delivery 12/19/22 08:12 12/19/22 06:14 Pulse Rate 78 Blood Pressure 132/79 Oxygen Delivery Room Air Exam Narrative: Alert and oriented. Vaginal bleeding small. Attempt at manual removal of placenta unsuccessful by JENNIFER and . Const: General: no acute distress Eyes: General: appearance normal, both eyes and all related structures Resp: Effort & Inspection: normal respiratory effort Auscultation: clear to auscultation bilaterally Cardio: Rate: regular rate GI: GI Palp: Yes Soft to palpation : General: Yes bladder normal to palpation Skin: General skin exam: normal color and no rashes or lesions noted Neuro: Speech: normal speech Motor exam (neuro): 5/5 motor strength present throughout Extrem: General: normal to inspection Psych: Mental Status: mental status grossly normal H&P: Results Labs Labs: Short CBC 12/19/22 Range/Units 06:09 WBC 11.7 H (4.5-10.0) K/mm3 Hgb 12.0 (12.0-15.0) g/dL Hct 36.3 L (37.0-47.0) % Plt Count 165 (150-375) k/mm3 Assessment and Plan Assessment and plan (1) Retained placenta or amniotic membrane after delivery without hemorrhage: Code(s): O73.1 - Retained portions of placenta and membranes, without hemorrhage Status: Acute Assessment and Plan: unsuccessful manual removal of placenta. (2) (normal spontaneous vaginal delivery): Code(s): O80 - Encounter for full-term uncomplicated delivery Status: Acute
--- NOTE | 2022-12-19 11:49 | PM.OBPRVD ---
OB - Delivery Note Procedure Delivery date: 12/19/22 Procedure: Procedures Operation Date: 12/19/22 12:30 <No data on this case meets the specified criteria> Induction method: None Delivery augmentation: Rupture of Membranes Delivery monitor: External Uterine Route of delivery: Episiotomy description: None Laceration Description: Perineal - 2nd Degree and Labial Delivery repair: vicryl Specimen: Yes (placenta) Quantitative Blood Loss (ml): 150 (from delivery. See OR record for remainder. ) Anesthesia type: None Complications: Retained placenta. Unsuccessful attempt at manual removal of placenta by JENNIFER and . Pt to OR for D&C Narrative: Patient arrived in spontaneous labor. Amniotomy performed at patient request. She made change to complete dilation. she tolerating contractions well and declined epidural. She stood at bedside and pushed with a few contractions. She easily brought the head to . There was slow, controlled delivery of the head. There was minimal restitution. She was repositioned slightly and there was delivery of the anterior and posterior shoulders followed by the remainder of the infant. The infant was passed up to the maternal abdomen and the patient was assisted to bed. After 1 minute of life the cord was doubly clamped and cut. Cord gases, cord blood, and cord segment were obtained. The infant remained skin to skin and breast fed. The left labial laceration was repaired with a 3-0 Vicryl suture during this time. After 30 minutes and no delivery of the placenta, it was determined that there was retained placenta. Discussed the plan of care with patient and she was given IV analgesia. Manual removal of placenta was unsuccessful by JENNIFER. Called Dr. Guido. arrived to room and attempted manual removal of the placenta. Due to firm uterine tone, this was also unsuccessful. The decision was made to proceed with a D&C. Patient and partner were counseled as to procedure, risks, and benefits. 2g of Ancef was ordered. [place] Baby Date of : 12/19/22 Time of : 10:36 Weeks of gestation at delivery: 39 Infant gender: Male Weight (pounds): 7 Weight (ounces): 15 presentation: vertex position: Right Occiput Anterior Placenta delivery description: Other (see OR record) Cord Vessel Description: 3 Vessels, Clamped/Cut, Delayed Cord Clamping and Around Body score one minute: 8 score five minutes: 9
--- NOTE | 2022-12-19 11:57 | PM.DS ---
DS: Admitting Diagnosis Discharge Date 12/21/2022 Admitting Diagnosis labor at term DS: Discharge Diagnosis Discharge Diagnosis (1) Retained placenta or amniotic membrane after delivery without hemorrhage: Code(s): O73.1 - Retained portions of placenta and membranes, without hemorrhage Status: Acute (2) (normal spontaneous vaginal delivery): Code(s): O80 - Encounter for full-term uncomplicated delivery Status: Acute (3) S/P dilation and curettage: Code(s): Z98.890 - Other specified postprocedural states Status: Acute (4) Patient is a currently breast-feeding mother: Code(s): Z39.1 - Encounter for care and examination of lactating mother Status: Acute DS: Summary Hospital Course Reason for hospitalization: childbirth Hospital Course: Complicated by retained placenta requiring D&C. Time Spent with Patient Time attestation: Total time spent providing and/or coordinating discharge services: DS: Data Data Completed and Pending Labs on day of discharge: Labs from last 24 hours 12/19/22 06:09 WBC 11.7 H RBC 3.88 L Hgb 12.0 Hct 36.3 L MCV 93.6 MCH 30.9 MCHC 33.1 RDW 13.6 Plt Count 165 MPV 10.9 H Immature Gran % (Auto) 0.9 H Neut % (Auto) 83.1 H Lymph % (Auto) 10.2 L [place] % (Auto) 5.2 Eos % (Auto) 0.2 Baso % (Auto) 0.4 Lymph # (Auto) 1.19 [place] # (Auto) 0.6 Eos # (Auto) 0.0 Baso # (Auto) 0.1 Abs Immat Gran (auto) 0.11 H Absolute Neuts (auto) 9.7 H Absolute Nucleated RBC 0.0 Nucleated RBC % 0.0 RPR Pending Blood Type A Positive Antibody Screen Negative Discharge Plan Discharge Attending physician on discharge: Catalina Guido Consulting providers: Milagro Chavez; Jack Cannon; Barry Cooper Discharging Clinician: Catalina Guido Patient Disposition: Home, Self-Care Activity: may shower Diet: as tolerated Discharge Instructions: Education: Mom and Baby Guide Given to: Mother Follow-Up: Call your delivering provider's office for an appointment to be seen in: 6 Weeks Mom and baby should come to the [facility] for the follow-up appointment. Appointment Date/Time: December 22, 2022 at 11:00 am What to expect at your follow-up visit: Blood Pressure Check Physical Assessment Call [phone] if you are unable to keep your appointment time. BREAST CARE: * Wear a snug supportive bra. * For engorgement discomfort: Breast Feeding: * Apply warm moist washcloths * Express milk as needed to relieve engorgement * Wear loose clothing * For sore nipples: * Identify correct latch-on * Apply warm moist washcloths before and after nursing * Air dry nipples after nursing * May apply Lansinoh cream to nipples PERINEAL CARE: * Until bleeding stops, use your dulce bottle after urinating * Change your pad frequently throughout the day * You may take sitz baths several times a day (fill your bathtub with warm water and soak for 20 minutes.) Do NOT bathe in the water * No tub baths until seen by your physician - You may shower ACTIVITY: * Rest as much as possible. * Do not exercise or lift anything heavier than your baby (such as laundry or other children.) * Avoid stairs or driving as much as possible. * Do not put anything into the vagina. No douching, tampons, or sexual activity until seen by physician. NOTIFY PHYSICIAN IF YOU HAVE ANY QUESTIONS OR IF ANY OF THE FOLLOWING SYMPTOMS OCCUR: * If your incision becomes red, swollen, or more painful than what you have experienced in the hospital. * If your vaginal bleeding becomes foul smelling. * If your vaginal bleeding becomes more heavy than a period or if your bleeding changes from pink to bright red. However, you may pass an occasional walnut-sized clot once or twice for the first week . * If you experience a sharp, shooting pain in your calves. * If y
[2022-12-19] MEDS: ceFAZolin 2 GM/D5W 50 ML 2 GM/50 ML BAG 100 GM (12:04)
--- NOTE | 2022-12-19 12:16 | WPDHPUPDATE1 ---
History and Physical Update Update Date/Time: 12/19/22 12:16 History and Physical has been reviewed, including an updated exam of the patient. There are NO changes in the patient's condition. Risks, benefits, and alternatives have been discussed and questions answered. Patient agrees to proceed with procedure. Plan to proceed to OR for D&C for retained placenta
--- NOTE | 2022-12-19 12:23 | WPDANESEPPF ---
Anes - Initial Pre Proc Eval Procedure: Operation Date: 12/19/22 12:30 Proposed Procedures p Suction Dilatation And Curettage - Catalina Guido MD Date/Time: 12/19/22 12:23 Surgeon: Catalina Guido MD Pre Op Diagnosis: Contractions Patient Data Age: 32 Gender: F Height: Weight: Last Vital Signs Pulse 78 12/19/22 08:12 BP 132/79 12/19/22 08:12 O2 Del Method Room Air 12/19/22 06:14 Allergies Allergy/AdvReac Type Severity Reaction Status Date / Time Sulfa (Sulfonamide Allergy Unknown Verified 11/24/22 12:33 Antibiotics) Home Medications Medication Instructions Recorded Confirmed Type prenat.vits,quentin,tsa-ydar-sydcs 1 tablet PO DAILY 10/30/20 12/19/22 History aspirin 81 mg chewable tablet 81 mg PO DAILY 11/24/22 12/19/22 History Laboratory Tests 12/19/22 06:09 WBC 11.7 H K/mm3 (4.5-10.0) RBC 3.88 L M/mm3 (4.2-5.4) Hgb 12.0 g/dL (12.0-15.0) Hct 36.3 L % (37.0-47.0) MCV 93.6 fl (80-100) MCH 30.9 pg (26-34) MCHC 33.1 g/dl (32-36) RDW 13.6 % (11.5-14.5) Plt Count 165 k/mm3 (150-375) MPV 10.9 H fl (7.4-10.4) Immature Gran % (Auto) 0.9 H % (0-0.5) Neut % (Auto) 83.1 H % (45.5-73.1) Lymph % (Auto) 10.2 L % (18.3-44.2) [place] % (Auto) 5.2 % (2.6-8.5) Eos % (Auto) 0.2 % (0-4.4) Baso % (Auto) 0.4 % (0.2-1.2) Lymph # (Auto) 1.19 K/mm3 (0.9-3.2) [place] # (Auto) 0.6 K/mm3 (0.1-0.6) Eos # (Auto) 0.0 K/mm3 (0-0.3) Baso # (Auto) 0.1 K/mm3 (0.0-0.1) Abs Immat Gran (auto) 0.11 H K/mm3 (0.00-0.031) Absolute Neuts (auto) 9.7 H K/mm3 (1.3-6.7) Absolute Nucleated RBC 0.0 K/mm3 (0.0-0.012) Nucleated RBC % 0.0 % (0.0-0.2) RPR Pending Blood Type A Positive Antibody Screen Negative Patient hx anesthesia problems: none Family hx anesthesia problems: none Results Review: All pre-operative results and documents have been reviewed as part of the pre-operative evaluation. [facility] Past Medical History Medical History Overweight (BMI 25.0-29.9) and not yet delivered Surgical History Surgical History History of tonsillectomy Family History Family History Mother A-fib Scoliosis Sibling Scoliosis Social History Social History Smoking status: Never smoker Second hand tobacco smoke exposure: No Substance use: never Lack of Transportation: No Lack of Food: Never True Current Housing: I Have Housing Concerned About Future Housing: No Difficulty Paying Gas/Electric Bills: No Difficulty Paying for Meds: No Currently Unemployed: YES Education: Master's Degree or Higher Difficulty w/ Childcare or Family Care: No Spiritual care concerns: No Anes - Eval Final PreProcedure Day of Procedure 12/19/22 12:23 Patient weight: overweight Heart: regular rate and rhythm Lungs: clear to auscultation Airway: Mallampati scale Neurological: alert and oriented Last oral intake: >/= 8 hours ASA classification: II Emergent: yes Anesthetic plan: proceed Anesthesia type and monitoring: general GIVS and standard monitoring Results Review: All pre-operative results and documents have been reviewed as part of the pre-operative evaluation. Informed Consent: The patient's anesthetic plan and its attendant risks and benefits were discussed with the patient/family/POA. Questions were solicited and answers provided to the satisfaction of the patient/family/POA.
[2022-12-19] MEDS: LACTATED RINGERS 1,000 ML 30 ML IV CONT ×2 (12:25→13:52)
[2022-12-19] MEDS: LIDOCAINE HCL 1% LOCAL INJ 10 ML VIAL INFILTRATE (12:30)
--- NOTE | 2022-12-19 13:10 | SUR.OPER ---
EBL: 1100ml
--- NOTE | 2022-12-19 13:20 | W.PM.PROC2 ---
Procedure Note - Detailed Date of Procedure 12/19/22 Pre-op Diagnosis Retained placenta Post-op Diagnosis Same Procedure Performed suction D&C manual removal of placenta Surgeon Catalina Guido MD Anesthesia MAC Findings uterine fundus at +4 lower uterine segment contracted down to 3cm fundal placenta not detached Description of Procedure The patient was taken to the operating room and placed under anesthesia in the dorsal lithotomy position. Vaginal clots and debris are manually removed. The manual exam reveals the cervix to be approximately 3cm at the lower uterine segment. The bivalve speculum was placed in the vagina and the cervix was grasped on the anterior lip with a ring forcep the 14mm curved suction curette is used while the physician assistant certified was holding the fundus firm and downward. Minimal material was obtained. The horseshoe curette was used again with minimal material obtained. The manual exam was again performed and the cervix is still approximately 3cm. During this process approximately 2cm area cervix the was torn and the ring forceps. I requested nitroglycerin to be given per Anesthesia. She was given 100mcg with minimal change. She was then given 200mcg in the lower uterine segment relaxed and I was able to manually reach the fundus. A plane was able to be made and the placenta removed manually. Manual exploration was again performed and the uterus was noted to be smooth with no additional placenta or membranes noted. The uterus contracted down nicely with Pitocin to U -2. The weighted speculum was placed posteriorly and a right angle retractor was placed anteriorly the cervix laceration is closed with 3-0 Vicryl in a running locked stitch. Good hemostasis is noted. The vaginal laceration from delivery is closed with 3-0 Vicryl in the usual manner. Good hemostasis and approximation. Estimated Blood Loss 1,200 Drains No Packing No Pathology Yes ( Placenta) Complications Other complications ( hemorrhage; retained placenta) Condition Stable Disposition PACU
[2022-12-19 13:25] LABS: Rapid Plasma Reagin Non-Reactive (NonReactive)
[2022-12-19] MEDS: BENZOCAINE 20% AER SPR (*SP) 56 GM CAN 1 SPRAY TOPICAL (14:56)
[2022-12-19] MEDS: WITCH HAZEL 40 PADS 1 PAD TOPICAL (14:56)
--- NOTE | 2022-12-19 15:08 | OBPPTRN ---
Patient transferred to post room #291 via wheelchair. Support person present. Oriented to unit, room, information board, rooming in, admission packet and security measures. Patient verbalizes understanding.
--- NOTE | 2022-12-19 15:10 | PC.NURSE ---
Patient passed out after sitting on the side of the bed for a few minutes after getting off the wheelchair and a rapid response was called. Patient came back to about 30 seconds after passing out. IV LR fluids started and H&H drawn. Patient's vaginal bleeding minimal and fundus firm at umbilicus. Vital signs documented. Patient states feeling okay. Orders received to call Dr. Guido if Hgb is less than 9.0, otherwise finish 1000ml bag of IV LR and patient may drink/eat if she continues to feel okay.
[2022-12-19 15:31] LABS: Hematocrit 28.6 % (37.0-47.0); Hemoglobin 9.5 g/dL (12.0-15.0)
[2022-12-19] MEDS: KETOROLAC 30 MG/ML VIAL (*BKC) IV PUSH (15:47)
--- NOTE | 2022-12-19 15:59 | PC.NURSE ---
[phone] Introductions were made to the father of the baby. Discussion concerning milk production, skin-to skin with mother when she returns from the PACU, and protecting the milk production. Father of the baby states they had to supplement their first child before day 3. Reviewed the pie demonstration, put the name on the communication board, and how to call for services as needed.
[2022-12-19] MEDS: POLYSACCHARIDE IRON COMPLEX 150 MG CAPSULE PO (18:27)
[2022-12-19] MEDS: DOCUSATE SODIUM 100 MG CAPSULE PO (18:28)
[2022-12-20 01:00] VITALS: BP 103/65; PULSE 74; RESP 18; TEMP 37.2; O2SAT 94
[2022-12-20] MEDS: IBUPROFEN 600 MG TABLET PO (01:28)
[2022-12-20 04:40] VITALS: BP 98/58; PULSE 80; RESP 16; TEMP 37.1; O2SAT 97
[2022-12-20 05:29] LABS: Hematocrit 21.9 % (37.0-47.0); Hemoglobin 7.4 g/dL (12.0-15.0)
--- NOTE | 2022-12-20 06:35 | P.PNOB_ITS ---
OB - PN: Subj Subjective Date/time seen: 12/20/22 06:35 Interval history: Sitting up in bed. PPD1/ s.p unmedicated , retained placenta, manual removal of the placenta, cervical laceration, PPH. Has no complaints. Denies dizziness when ambulating or at rest. nursing well. Pain well controlled with Ibuprofen. Patient comments: no complaints and pain well controlled baby status: doing well and nursing well feeding status: exclusively breast feeding OB - PN: Obj Data Labs 12/20/22 04:39 Labs: Laboratory Results - last 24 hr 12/19/22 12/19/22 12/20/22 06:09 15:24 04:39 WBC 11.7 H RBC 3.88 L Hgb 12.0 9.5 L 7.4 L Hct 36.3 L 28.6 L 21.9 L MCV 93.6 MCH 30.9 MCHC 33.1 RDW 13.6 Plt Count 165 MPV 10.9 H Immature Gran % (Auto) 0.9 H Neut % (Auto) 83.1 H Lymph % (Auto) 10.2 L [place] % (Auto) 5.2 Eos % (Auto) 0.2 Baso % (Auto) 0.4 Lymph # (Auto) 1.19 [place] # (Auto) 0.6 Eos # (Auto) 0.0 Baso # (Auto) 0.1 Abs Immat Gran (auto) 0.11 H Absolute Neuts (auto) 9.7 H Absolute Nucleated RBC 0.0 Nucleated RBC % 0.0 RPR Non-reactive Blood Type A Positive Antibody Screen Negative OB - PN A/P Plan day: 1 Plan: routine care Time Spent With Patient Time: Total time spent is greater than 50% in coordination of care (as documented) at patient's floor/unit and/or counseling patient: Review of Systems Review of Systems: All systems reviewed & are unremarkable except as noted in HPI and below Exam Narrative: Alert and oriented. Mood is pleasant and cooperative. Urinating without difficulty. Denies passing any large clots. Perineum with minimal edema. Fundus firm and below umbilicus. Const: General: cooperative, healthy appearing, no acute distress and alert Orientation/consciousness: patient oriented x3 Limitations: no limitations Resp: Effort & Inspection: normal respiratory effort Auscultation: clear to auscultation bilaterally Cardio: Rate: regular rate GI: Inspection: normal to inspection Neuro: General: patient oriented x3 Extrem: General: normal to inspection Psych: Appearance: grossly normal Mental Status: mental status grossly normal Affect: normal affect Thought process: Normal thought process present
[2022-12-20] MEDS: DOCUSATE SODIUM 100 MG CAPSULE PO ×2 (09:15→17:04)
[2022-12-20] MEDS: ACETAMINOPHEN 325 MG TABLET 650 MG PO (09:15)
[2022-12-20] MEDS: MULTIVIT/MIN/PREN/FOL AC/IRON TABLET 1 TAB PO (09:15)
[2022-12-20] MEDS: POLYSACCHARIDE IRON COMPLEX 150 MG CAPSULE PO ×2 (09:15→17:04)
[2022-12-20 09:20] VITALS: BP 102/59; PULSE 87; RESP 18; TEMP 37.1; O2SAT 97
--- NOTE | 2022-12-20 10:00 | WPDANESPN ---
Anes - Prog Note Post-Op Date/Time: 12/20/22 10:00 Cardiovascular status: normal Respiratory status: normal Airway patency: baseline Mental status: baseline Post-Op hydration status: normal Vital Signs: Last Vital Signs Temp 98.8 F 12/20/22 09:20 Pulse 87 12/20/22 09:20 Resp 18 12/20/22 09:20 BP 102/59 L 12/20/22 09:20 Pulse Ox 97 12/20/22 09:20 O2 Del Method Room Air 12/20/22 04:40 O2 Flow Rate 10 12/19/22 13:23 Pain Score (VAS): 0/10 Laboratory Tests 12/20/22 04:39 12/19/22 12/19/22 12/20/22 06:09 15:24 04:39 Hgb 9.5 L 7.4 L Hct 28.6 L 21.9 L RPR Non-reactive Post-procedural complaints: none Patient Feedback: Patient satisfied with anesthetic care.
--- NOTE | 2022-12-20 15:43 | PC.NURSE ---
[id number] Introductions were made, then consulted with patient to assess needs related to . Mother led the conversation with her?plans to feed?her infant and the?experience so far. Resources provided for inpatient and outpatient services with name written on the white board. Mother verbalizes she is able to independently latch infant with appropriate positioning/alignment. She denies any nipple discomfort and is responsively . Infant is currently meeting outcomes for weight, output, jaundice and feeding frequencies of 8-12 times in 24 hours. Mother is encouraged to call for assistance if her doesn?t latch or there is discomfort with latching.
[2022-12-20 21:00] VITALS: BP 122/68; PULSE 97; RESP 18; TEMP 37; O2SAT 98
[2022-12-21 05:11] LABS: Hematocrit 22.6 % (37.0-47.0); Hemoglobin 7.6 g/dL (12.0-15.0); Mean Corpuscular HGB Conc 33.6 g/dl (32-36); Mean Corpuscular Hemoglobin 31.8 pg (26-34); Mean Corpuscular Volume 94.6 fl (80-100); Mean Platelet Volume 10.3 fl (7.4-10.4); Platelet Count Result 186 k/mm3 (150-375); Red Blood Count 2.39 M/mm3 (4.2-5.4); Red Cell Distribution Width 13.8 % (11.5-14.5); White Blood Count 12.2 K/mm3 (4.5-10.0)
--- NOTE | 2022-12-21 07:47 | PM.OBPNVD ---
OB - PN: Subj Subjective Date/time seen: 12/21/22 07:47 Patient comments: no complaints, pain well controlled and other (ambulating without difficulty) [place] baby status: doing well OB - PN: Obj Data Labs 12/21/22 04:58 Labs: Laboratory Results - last 24 hr 12/21/22 04:58 WBC 12.2 H RBC 2.39 L Hgb 7.6 L Hct 22.6 L MCV 94.6 MCH 31.8 MCHC 33.6 RDW 13.8 Plt Count 186 MPV 10.3 OB - PN A/P Plan day: 2 Plan: routine care, discharge home and follow up 6 weeks Time Spent With Patient Time: Total time spent is greater than 50% in coordination of care (as documented) at patient's floor/unit and/or counseling patient: Exam : Bimanual exam- vagina & uterus: other (Uterus firm, nt @U)
[2022-12-21] MEDS: MULTIVIT/MIN/PREN/FOL AC/IRON TABLET 1 TAB PO (08:54)
[2022-12-21] MEDS: POLYSACCHARIDE IRON COMPLEX 150 MG CAPSULE PO (08:54)
[2022-12-21] MEDS: DOCUSATE SODIUM 100 MG CAPSULE PO (08:54)
[2022-12-21 09:00] VITALS: BP 115/74; PULSE 100; RESP 18; TEMP 36.6; O2SAT 97
--- NOTE | 2022-12-21 11:10 | PC.NURSE ---
[id number] Patient was assessed for flange size for initiation of pumping around week 4. Discussed milk production and encouraged the frequency of mother putting her to breast to stimulate a robust milk supply. Mother state she has the ability to independently latch infant optimally without discomfort. Reinforced understanding of milk production, transition of milk, signs of adequate intake, transition of stool, prevention/relief of engorgement, responsive watching for feeding cues, the different methods of stimulating to breastfeed 2-3 hours after the start of the last feeding, community resources, medication information reviewed per [facility] and when to call a provider using the resource of the mom and baby guide. Reviewed the possible delay in the milk production related to QBL and the potential to supplement if her milk is delayed. Mother voiced understanding of the education shared. Reported to the primary RN.
[2022-12-22 11:30] VITALS: BP 124/79; PULSE 102; RESP 18; TEMP 37.2; O2SAT 98
== END 2022-12-21 12:01 | disposition home or self-care (01) | DRG 768 ==
LOC: ANHLDR 11:59 → ANHOB2 15:14
PROVIDERS: Advanced Practice Midwife; Admitting Provider Obstetrics & Gynecology Gynecology; Visit Provider Obstetrics & Gynecology Gynecology
PROC: 0UQC7ZZ Repair Cervix, Via Natural or Artificial Opening (ICD-10-PCS; principal; 2022-12-19 12:30)
DX: O72.2 Delayed and secondary postpartum hemorrhage (principal); Z37.0 Single live birth; O71.3 Obstetric laceration of cervix; N99.71 Accidental puncture and laceration of a genitourinary system organ or structure during a genitourinary system procedure; Z3A.39 39 weeks gestation of pregnancy; O70.1 Second degree perineal laceration during delivery
CPT/HCPCS: 36415; 85014; 85018; 85025; 85027; 86592; 86850; 86900; 86901; 88305; 88307; A9270; J0690; J1885; J2250; J2370; J2590; J2704; J3010; J7120